=== PATIENT | male | born 1965 | race Caucasian/White ===

== ENCOUNTER 2022-12-08 22:03 | Outpatient (REF) | payer OTHER, SELFPAY ==
[2022-12-08 21:52] LABS: HCT 48.7 % (40.0-50.0); HGB 15.6 g/dL (13.5-17.5); MCH 28.5 pg (27.0-33.0); MCV 89 fL (80-95); MPV 11.6 fL (8.0-11.0); Platelet Count 397 10^3/uL (130-400); RBC 5.47 10^6/uL (4.36-5.78); RDW 12.2 % (11.8-14.1); RDW-SD 40.7 fL; WBC 10.71 10^3/uL (4.4-10.8)
== END 2022-12-08 22:04 | disposition home or self-care (01) ==
LOC: NCHCN 22:03
PROVIDERS: Visit Provider Registered Nurse
DX: D64.9 Anemia, unspecified (principal); I10 Essential (primary) hypertension
CPT/HCPCS: 80053; 80061; 85027; 84443

== ENCOUNTER 2022-12-15 15:30 | Outpatient (REF) | payer OTHER, SELFPAY ==
[2022-12-15 21:59] LABS: ALT 27 U/L (16-63); AST 23 U/L (15-37); Albumin 4.2 g/dL (3.4-5.0); Alkaline Phosphatase 100 U/L (46-116); Anion Gap 8.7 mmol/L (3-11); BUN 12 mg/dL (7-18); Bilirubin, Total 0.4 mg/dL (0.2-1.0); CO2 31.3 mmol/L (21.0-32.0); CREATININE 1.2 mg/dL (0.70-1.30); Calcium 9.8 mg/dL (8.5-10.1); Chloride 101 mmol/L (98-107); Estimated GFR 70.98 (mL/min/1.73m2); Glucose 179 mg/dL (74-106); Potassium 4.3 mmol/L (3.5-5.1); Sodium 141 mmol/L (136-145); TSH 1.55 uIU/mL (0.36-3.74); Total Protein 8.1 g/dL (6.4-8.2)
[2022-12-15 22:15] LABS: Calculated LDL 75 mg/dL (<100); Cholesterol 175 mg/dL (<200); HDL Cholesterol 57 mg/dL (40-60); Triglyceride 216 mg/dL (<150)
== END 2022-12-15 15:31 | disposition home or self-care (01) ==
LOC: NCHCN 15:30
PROVIDERS: PCP Registered Nurse; Visit Provider Registered Nurse
DX: I10 Essential (primary) hypertension (principal); E78.5 Hyperlipidemia, unspecified; D64.9 Anemia, unspecified
CPT/HCPCS: 80053; 80061; 84443

== ENCOUNTER 2023-01-17 15:48 | Outpatient (REF) | payer OTHER, SELFPAY ==
[2023-01-17 15:31] LABS: Vitamin B12 484 pg/mL (193-986)
[2023-01-17 15:37] LABS: COMMENT (LAB VIEW ONLY) 296.22 mg/dL; Microalb ug/mg Crea 24.1 ug/mg Cr
== END 2023-01-17 15:49 | disposition home or self-care (01) ==
LOC: NCHCN 15:48
PROVIDERS: PCP Registered Nurse; Visit Provider Registered Nurse
DX: E11.9 Type 2 diabetes mellitus without complications (principal); G62.9 Polyneuropathy, unspecified
CPT/HCPCS: 82043; 82570; 82607

== ENCOUNTER 2023-03-15 21:16 | Outpatient (REF) | payer OTHER, SELFPAY ==
[2023-03-15 21:31] LABS: ALT 28 U/L (16-63); AST 28 U/L (15-37); Albumin 4.1 g/dL (3.4-5.0); Alkaline Phosphatase 98 U/L (46-116); Anion Gap 4.2 mmol/L (3-11); BUN 22 mg/dL (7-18); Bilirubin, Total 0.4 mg/dL (0.2-1.0); CO2 33.8 mmol/L (21.0-32.0); CREATININE 1.3 mg/dL (0.70-1.30); Calcium 9.5 mg/dL (8.5-10.1); Chloride 103 mmol/L (98-107); Estimated GFR 64.47 (mL/min/1.73m2); Glucose 109 mg/dL (74-106); Lipase 225 U/L (16-77); Potassium 4.9 mmol/L (3.5-5.1); Sodium 141 mmol/L (136-145); Total Protein 7.8 g/dL (6.4-8.2)
== END 2023-03-15 21:17 | disposition home or self-care (01) ==
LOC: NCHCN 21:16
PROVIDERS: PCP Registered Nurse; Visit Provider Registered Nurse
DX: R10.84 Generalized abdominal pain (principal); Z87.19 Personal history of other diseases of the digestive system
CPT/HCPCS: 80053; 83690

== ENCOUNTER 2023-10-23 15:16 | Outpatient (REF) | payer OTHER, SELFPAY ==
[2023-10-23 16:01] LABS: Anion Gap 3.6 mmol/L (3-11); BUN 11 mg/dL (7-18); CO2 32.4 mmol/L (21.0-32.0); CREATININE 1.2 mg/dL (0.70-1.30); Calcium 9.1 mg/dL (8.5-10.1); Chloride 105 mmol/L (98-107); Estimated GFR 70.53 (mL/min/1.73m2); Glucose 228 mg/dL (74-106); Potassium 4.4 mmol/L (3.5-5.1); Sodium 141 mmol/L (136-145)
== END 2023-10-23 15:17 | disposition home or self-care (01) ==
LOC: NCHCN 15:16
PROVIDERS: PCP Registered Nurse; Visit Provider Physician Assistant
DX: N17.9 Acute kidney failure, unspecified (principal)
CPT/HCPCS: 80048